=== PATIENT | female | born 1975 | race African-American/Black ===

== ENCOUNTER 2016-09-25 06:40 | Emergency (ER) | payer MEDICARE, MEDICAID ==
[~2016-09-25] VITALS: Ht 175.3 cm; Wt 70.3 kg
[~2016-09-25 06:40] MED LIST: CYCLOBENZAPRINE10 MG ORAL; IBUPROFEN600 MG ORAL; MAXALT5 MG PO; NKM; NORCO 5-325 TA1 EACH ORAL
[2016-09-25] MEDS ORDERED: IBUPROFEN600 MG ORAL (07:11)
[2016-09-25] MEDS ORDERED: NORCO 5-325 TA1 EACH ORAL (07:11)
[2016-09-25] MEDS ORDERED: Norco 5mg/325mg tab ORAL ONE (07:15)
[2016-09-25 07:24] VITALS: BP 132/80
[2016-09-25 07:25] VITALS: BP 132/80
--- NOTE | 2016-09-25 07:26 | Emergency Room Report ---
History of Present Illness General Chief Complaint: Pain Source: Patient Present Illness HPI Patient presents emergency department today complaining of acute right lower extremity pain. Patient states that she actually has had back pain for years. She has history osteomyelitis in that leg since 2003. Patient states that she' s had recurrent injury since then. She denies any recent injury. Denies any fall or trauma. She is able to ambulate. She is able to move her ankle. She states that she wanted all her medical records and a x-ray of her left leg. She denies any fever chest pain or shortness of breath. She denies any nausea vomiting diarrhea or chills. Symptoms noted to be mild/moderate. Patient denies any numbness or weakness in her legs. She states that she takes pain medications as needed for pain. She denies any swelling redness or other injury. Patient seems to have very disorganized thought process and is often rambling in her description. She states that the police have caused many of her issues. She however denies any suicidal or homicidal ideation. She denies any auditory or visual hallucinations. She denies any psychiatric illnesses.No other modifying factors. No other associated signs and symptoms. No other complaints were noted. Allergies: Coded Allergies: No Known Allergies (Unverified , 09/25/16) Patient History Past Medical History: other - right lower extremity osteomyelitis Past Surgical History: none Pertinent Family History: none Social History: Reports: smoking Last Menstrual Period: unk Now: No Reviewed Nursing Documentation: PMH: Agreed, PSxH: Agreed Nursing Documentation-PMH Past Medical History: No History, Except For Review of Systems All Other Systems: negative except mentioned in HPI Physical Exam Vital Signs Date Time Temp Pulse Resp B/P Pulse Ox O2 Delivery O2 Flow Rate FiO2 09/25/16 06:45 98.1 87 16 132/80 99 Room Air Sp02 EP Interpretation: reviewed, normal General Appearance: normal inspection, well appearing, no apparent distress, alert Head: atraumatic Eyes: bilateral eye normal inspection ENT: normal ENT inspection, hearing grossly normal, normal voice Neck: normal inspection, full range of motion, supple, no bony tend Respiratory: normal inspection, lungs clear, normal breath sounds, no respiratory distress, no retraction, no wheezing Cardiovascular #1: regular rate, rhythm, no edema Gastrointestinal: normal inspection, normal bowel sounds, non tender, soft, no guarding, no hernia Genitourinary: no CVA tenderness Musculoskeletal: normal inspection, back normal, normal range of motion Neurologic: normal inspection, alert, responsive, speech normal Psychiatric: normal inspection, judgement/insight normal, mood/affect normal Skin: normal inspection, normal color, no rash Medical Decision Making Diagnostic Impression: Primary Impression: Leg pain, right Additional Impression: Leg pain, diffuse Qualified Codes: M79.604 - Pain in right leg ER Course Patient presents emergency department today with multiple complaints. Differential diagnoses include acute right lower extremity infection, fracture, arthritis, strain just to name a few. Patient's exam is completely benign. There is no evidence of infection. I do not feel that x-rays are indicated at this time. Given that there is no trauma. Patient is able to move her ankle without difficulty. Patient was given crutches per her r request. Patient was given some pain medications and a prescription.Patient is advised to follow up with primary doctor in 2-3 days and return the emergency room for any worsening symptoms and as needed. Last Vital Signs Date Time Temp Pulse Resp B/P Pulse Ox O2 Delivery O2 Flow Rate FiO2 09/25/16 06:45 98.1 87 16 132/80 99 Room Air Status: improved Disposition: HOME, SELF-CARE Condition: Stable Scripts Ibuprofen* (MOTRIN*) 600 Mg Tablet 600 MG ORAL Q8H Y for For Pain, #10 TAB 0 Refills Prov: JOHN KENT M.D. 09/25/16 Hydrocodone Bit/Acetaminophen 5-325* (NORCO 5-325*) 1 Each Tablet 1 TAB ORAL Q6H Y for For Pain, #10 TAB 0 Refills Prov: JOHN KENT M.D. 09/25/16 Patient Instructions: Arthritis JOHN KENT M.D. Sep 25, 2016 07:26
== END 2016-09-25 07:34 | disposition home or self-care (01) ==
LOC: EMR 07:23
DX: M79.604 Pain in right leg (principal); M86.8X6 Other osteomyelitis, lower leg; F17.200 Nicotine dependence, unspecified, uncomplicated
CPT/HCPCS: 99283

== ENCOUNTER 2017-09-10 00:29 | Emergency (ER) | payer MEDICARE, MEDICAID ==
[~2017-09-10] VITALS: Ht 175.3 cm; Wt 65.8 kg
[2017-09-10 00:45] VITALS: BP 114/69
[2017-09-10] MEDS ORDERED: IBUPROFEN600 MG ORAL (01:07)
[2017-09-10] MEDS ORDERED: AMOXICILLIN500 MG ORAL (01:07)
--- NOTE | 2017-09-10 01:07 | Emergency Room Report ---
History of Present Illness General Chief Complaint: Pain Source: Patient Present Illness HPI Is a 42-year-old female who presents with chief complaint of jaw dental pain. Onset for a while now. But worse in the last few days. Pain is localized to the right side her face. Complaining of dental pain. Pain is 7 out of 10. No nausea no vomiting. No swelling. No drainage. Allergies: Coded Allergies: No Known Allergies (Unverified , 09/25/16) Patient History Past Medical History: see triage record, old chart reviewed Past Surgical History: other Pertinent Family History: none Social History: Denies: smoking Last Menstrual Period: one week ago Now: No Immunizations: other Reviewed Nursing Documentation: PMH: Agreed; PSxH: Agreed Nursing Documentation-PM Past Medical History: No Stated History Review of Systems Eye: Denies: eye pain, blurred vision ENT: Denies: ear pain, nose congestion, throat swelling Respiratory: Denies: cough, shortness of breath Cardiovascular: Denies: chest pain, palpitations Gastrointestinal: Denies: abdominal pain, diarrhea, nausea, vomiting Musculoskeletal: Denies: back pain, joint pain Skin: Denies: rash Neurological: Denies: headache, numbness Endocrine: Denies: increased thirst, increased urine Hematologic/Lymphatic: Denies: easy bruising All Other Systems: negative except mentioned in HPI Physical Exam Vital Signs Date Time Temp Pulse Resp B/P (MAP) Pulse Ox O2 Delivery O2 Flow Rate FiO2 09/10/17 00:32 97.9 84 14 109/67 95 Room Air 97.9 vitals normal Sp02 EP Interpretation: reviewed, normal General Appearance: well appearing, no apparent distress, alert Head: normocephalic, atraumatic Eyes: bilateral eye PERRL, bilateral eye EOMI ENT: hearing grossly normal, normal pharynx, other Neck: full range of motion, supple, no meningismus Respiratory: chest non-tender, lungs clear, normal breath sounds Cardiovascular #1: regular rate, rhythm, no murmur Gastrointestinal: normal bowel sounds, non tender, no mass, no organomegaly, no bruit, non-distended Musculoskeletal: back normal, gait/station normal, normal range of motion Psychiatric: mood/affect normal Skin: warm/dry Medical Decision Making Diagnostic Impression: Primary Impression: Pain, dental ER Course Patient with dental pain. No obvious abscess. We'll put on antibiotics but will refer to then this. Last Vital Signs Date Time Temp Pulse Resp B/P (MAP) Pulse Ox O2 Delivery O2 Flow Rate FiO2 09/10/17 00:32 97.9 84 14 109/67 95 Room Air 97.9 Status: unchanged Disposition: HOME, SELF-CARE Condition: Stable Scripts Ibuprofen* (MOTRIN*) 600 Mg Tablet 600 MG ORAL THREE TIMES A DAY, #30 TAB 0 Refills Prov: RACHEL PUGH M.D. 09/10/17 Amoxicillin* (AMOXIL*) 500 Mg Capsule 500 MG ORAL THREE TIMES A DAY, #21 CAP Prov: RACHEL PUGH M.D. 09/10/17 Additional Instructions: Follow-up with dentist TIFFANIE. Return if symptom worsen. RACHEL PUGH M.D. Sep 10, 2017 01:07
[2017-09-10 01:15] VITALS: BP 114/69
== END 2017-09-10 01:15 | disposition home or self-care (01) ==
LOC: EMR 00:50
DX: K08.89 Other specified disorders of teeth and supporting structures (principal)
CPT/HCPCS: 99284